=== PATIENT | male | born 1985 | race African-American/Black ===

== ENCOUNTER 2016-12-08 17:31 | Emergency (ER) | payer OTHER ==
[~2016-12-08] VITALS: Ht 190.5 cm; Wt 104.3 kg
[~2016-12-08 17:31] MED LIST: FLEXERIL10 MG PO; IBUPROFEN800 M1 PO; NORCO 325 MG-51 TAB PO
[2016-12-08 17:46] VITALS: BP 114/77
[2016-12-08 17:59] LABS: ABSOLUTE BASOPHIL COUNT 0.1 /CUMM (0.0-0.2); ABSOLUTE EOSINOPHIL COUNT 0 /CUMM (0.0-0.7); ABSOLUTE GRANULOCYTE CT 4.2 /CUMM (1.4-6.5); ABSOLUTE LYMPH COUNT 1.7 /CUMM (1.2-3.4); ABSOLUTE MONOCYTE COUNT 0.3 /CUMM (0.10-0.60); BASOPHIL % 1.6 % (0.0-2.0); EOSINOPHIL % 0.1 % (0-5); HEMATOCRIT 43.1 % (42-52); MEAN CORPUSCULAR HGB 28.1 PG (27.0-31.0); MEAN CORPUSCULAR HGB CONC 33.6 G/DL (33.0-37.0); MEAN CORPUSCULAR VOLUME 83.6 FL (80.0-94.0); MEAN PLATELET VOLUME 8.6 FL (7.4-10.4); PLATELET COUNT 255 /CUMM (130-400); RBC DISTRIBUTION WIDTH 13.3 % (11.5-14.5); RED BLOOD CELL CT 5.15 /CUMM (4.70-6.10); WHITE BLOOD CELL COUNT 6.3 /CUMM (4.8-10.8)
--- NOTE | 2016-12-08 21:03 | ED GENERAL ADULT ---
History of Present Illness General Chief Complaint: General Adult Stated Complaint: ?DIABETES, WEIGHT FLUCTUATING Source: patient Exam Limitations: no limitations Allergies Coded Allergies: NO KNOWN ALLERGIES (07/23/12) Reconcile Medications No Known Home Medications Triage Note: PT STATES HE HASN'T BEEN EATING RIGHT AND HE THINKS HE MAY HAVE DIABETES. PT STATES HE IS HAVING FREQUENT URINATION. BS IN TRIAGE IS 82 Triage Nurses Notes Reviewed? yes HPI: 31/M with no past medical history presented to the ED because of polyuria. Patient thinks that he has at they [place] because his mother symptom of diabetes started that way. Patient reported feeling tired more than usual recently. He denies dysuria, urgency, or incontinence. Patient reported drinking plenty amount of water. Patient denies abdominal pain, nausea, vomiting, fever, or chills. All other review of system are benign (TE CERDA MD) Vital Signs & Intake/Output Vital Signs & Intake/Output Vital Signs Date Time Temp Pulse Resp B/P Pulse O2 O2 Flow FiO2 Ox Delivery Rate 12/08 1746 99.0 80 16 114/77 97 Room Air ED Intake and Output 12/09 0000 12/08 1200 Intake Total Output Total Balance Patient 104.326 kg Weight Past History Travel History Traveled to [place] past 21 day No Medical History Neurological: NONE EENT: NONE Cardiovascular: NONE Respiratory: NONE Gastrointestinal: NONE Hepatic: NONE Renal: NONE Musculoskeletal: NONE Psychiatric: NONE Endocrine: NONE Surgical History Surgical History: none Psychosocial History What is your primary language [place] Tobacco Use: Never used ETOH Use: occasional use Illicit Drug Use: denies illicit drug use (TE CERDA MD) Medical History Any Pertinent Medical History? none Family History Hx Contributory? No (NICOLE HELMS MD) Review of Systems Review of Systems Constitutional: Reports: see HPI. (TE CERDA MD) Review of Systems EENTM: Reports: no symptoms. Respiratory: Reports: no symptoms. Cardiovascular: Reports: no symptoms. GI: Reports: no symptoms. Genitourinary: Reports: no symptoms. Musculoskeletal: Reports: no symptoms. Skin: Reports: no symptoms. Neurological/Psychological: Reports: no symptoms. Hematologic/Endocrine: Reports: no symptoms. Immunologic/Allergic: Reports: no symptoms. All Other Systems: Reviewed and Negative (NICOLE HELMS MD) Physical Exam Physical Exam General Appearance: well developed/nourished, no apparent distress, alert, awake , comfortable Head: atraumatic, normal appearance Eyes: Bilateral: normal appearance, PERRL, EOMI. (ZAIDA SCHAEFER,ISMAIL) Physical Exam Ears, Nose, Throat: normal pharynx, normal ENT inspection, hearing grossly normal Neck: normal inspection, supple, full range of motion, no midline tenderness Respiratory: normal breath sounds, chest non-tender, no respiratory distress, quiet respiration, lungs clear Cardiovascular: regular rate/rhythm, normal peripheral pulses, norml femoral pulses equa Peripheral Pulses: 4+ carotid (R), 4+ carotid (L) Gastrointestinal: normal bowel sounds, soft, non-tender, no organomegaly Back: normal inspection, normal range of motion Extremities: normal inspection, normal capillary refill, normal range of motion, no edema Neurologic/Psych: no motor/sensory deficits, awake, alert, oriented x 3, normal gait, normal mood/affect, risk analyst II-XII nml as tested Reflexes: 2+: bicep (R), bicep (L). Skin: intact, normal color, warm/dry Lymphatic: no anterior cervical bandar Core Measures ACS in differential dx? No CVA/TIA Diagnosis: No Severe Sepsis Present: No Septic Shock Present: No (ANALIA SCHAEFER,NICOLE) Progress Differential Diagnoses I considered the following diagnoses in my evaluation of the patient: [Primary polydipsia and UTI] (ZAIDA SCHAEFER,ISMAIL) Differential Diagnoses I considered the following diagnoses in my evaluation of the patient: Plan of Care: Orders Procedure Date/time Status URINALYSIS 12/08 2100 Complete COMPREHENSIVE METABOLIC PANEL 12/08 1747 Complete CBC WITHOUT DIFFERENTIAL 12/08 1747 Complete Laboratory Tests 12/08/162115: Urine Color YEL, Urine Clarity CLEAR, Urine pH 6.0, Ur Specific [place] 1.025, Urine Protein NEG, Urine Ketones NEG, Urine Nitrite NEG, Urine Bilirubin NEG, Urine Urobilinogen 1.0, Ur Leukocyte Esterase NEG, Ur Microscopic EXAM NOT REQUIRED, Urine Hemoglobin NEG, Urine Glucose NEG 12/08/16 1753: Anion Gap 15, Estimated GFR > 60, BUN/Creatinine Ratio 14.0, Glucose 91, Calcium 9.4, Total Bilirubin 0.8, AST 16 L, ALT 22, Alkaline Phosphatase 56, Total Protein 7.5, Albumin 4.2, Globulin 3.3, Albumin/Globulin Ratio 1.3, CBC w Diff NO MAN DIFF REQ, RBC 5.15, MCV 83.6, MCH 28.1, RDW 13.3, MPV 8.6, Gran % 66.0, Lymphocytes % 26.8, Monocytes % 5.5, Eosinophils % 0.1, Basophils % 1.6, Absolute Granulocytes 4.2, Absolute Lymphocytes 1.7, Absolute Monocytes 0.3, Absolute Eosinophils 0, Absolute Basophils 0.1, PUBS MCHC 33.6 All patient labs including electrolytes, glucose level, urinalysis are within normal limits. Patient left the hospital without telling anyone and even before the lab was back (TE CERDA MD) Initial ED EKG: none (NICOLE HELMS MD) Departure Departure Disposition: ER WALKOUT Condition: Stable Clinical Impression Primary Impression: Primary polydipsia Referrals: PATIENT HAS NO PRIMARY CARE DR (PCP/Family) Additional Instructions: She left before he was officially discharged. He just walked out of the ED without telling anyone. Old patient labs are within normal limits and the plan was to instruct him to follow up with his primary care doctor to further address his polyuria Departure Forms: Customer Survey General Discharge Information Prescriptions: Current Visit Scripts No Known Home Medications (TE CERDA MD) Resident Co-Sign Statement Statement: ED Attending supervision documentation- x I saw and evaluated the patient. I have also reviewed all the pertinent lab results and diagnostic results. I agree with the findings and the plan of care as documented in the Resident's documentation. Patient eloped from ED prior to urinalysis results. [] I have reviewed the ED Record and agree with the Resident's documentation. [] Additions or exceptions (if any) to the Resident's note and plan are summarized below: [] (NICOLE HELMS MD) Critical Care Note Critical Care Note Critical Care Time: non-applicable (NICOLE HELMS MD)
== END 2016-12-08 22:39 ==
LOC: ERH 17:31
PROVIDERS: Emergency Medicine
DX: R63.1 Polydipsia (principal)
CPT/HCPCS: 81003

== ENCOUNTER 2018-04-30 06:57 | Emergency (ER) | payer OTHER ==
[~2018-04-30] VITALS: Ht 190.5 cm; Wt 111.1 kg
--- NOTE | 2018-04-30 07:19 | ED MVC/FALL/TRAUMA COMPLAINT ---
History of Present Illness General Chief Complaint: General Adult Stated Complaint: "RT SIDE RIB PAIN S/P FALL AT WORK" Source: patient Exam Limitations: no limitations Vital Signs & Intake/Output Vital Signs & Intake/Output Vital Signs Date Time Temp Pulse Resp B/P B/P Pulse O2 O2 Flow FiO2 Mean Ox Delivery Rate 04/30 0701 98.1 70 16 136/83 98 Room Air Allergies Coded Allergies: NO KNOWN ALLERGIES (07/23/12) Reconcile Medications No Known Home Medications Triage Note: 32 YEAR OLD MALE STATES THAT 2 WEEKS AGO WHILE AT WORK HE WAS IN AN ATTIC AND HE FELL THROUGH THE CIELING , STATES THAT HE DID NOT FALL TO THE FLOOR BUT HE FELL ONTO A WOODING BEAM, LANDED ON RIGHT SIDE RIBS. COMPLAINS OF R RIB PAIN THAT INCREASES WITH MOVEMENT Triage Nurses Notes Reviewed? 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 He did not fall completely to the ground, but instead his fall was broken by a large beam which he struck with his right hemithorax. He has had pain there since, and comes to the emergency department today for evaluation of that pain. Upon my initial encounter he is very well-appearing in no acute distress. He denies any alexandre dyspnea, but does report that the pain is focally worse with deep inspiration and movement. Past History Travel History Traveled to [place] past 21 day No Medical History Any Pertinent Medical History? none Neurological: NONE EENT: NONE Cardiovascular: NONE Respiratory: NONE Gastrointestinal: NONE Hepatic: NONE Renal: NONE Musculoskeletal: NONE Psychiatric: NONE Endocrine: NONE Surgical History Surgical History: none Psychosocial History What is your primary language Hungarian Tobacco Use: Never used ETOH Use: denies use Illicit Drug Use: denies illicit drug use Family History Hx Contributory? No Review of Systems Review of Systems Constitutional: Reports: see HPI. Eyes: Reports: no symptoms. Ears, Nose, Throat, Mouth: Reports: no symptoms. Respiratory: Reports: no symptoms. Cardiovascular: Reports: chest pain. Denies: edema, orthopena, palpitations, peripheral edema, syncope. Gastrointestinal/Abdominal: Reports: no symptoms. Genitourinary: Reports: no symptoms. Musculoskeletal: Denies: back pain, joint pain, muscle pain. Skin: Reports: no symptoms. Neurological/Psychological: Reports: no symptoms. All Other Systems: Reviewed and Negative Physical Exam Physical Exam General Appearance: well developed/nourished, no apparent distress, alert, awake , comfortable Comments: Sullivan full examHEENT: Inspection of the head reveals a normocephalic cranium with no signs of trauma. Ophtho: Extraocular muscles are intact and pupils are equal and reactive to light bilaterally with no afferent pupillary defect. The sclera are noninjected , and there is no obvious discharge. Neck: The trachea is midline, there is no obvious asymmetry or mass over the thyroid, and there is no midline cervical spine tenderness Respiratory: The lungs are clear and equal to auscultation bilaterally without wheezes, rales, or rhonchi. The patient exhibits no signs of labored breathing. Cardiac: Regular rhythm and non-tachycardic without appreciable murmurs on auscultation. No obvious JVD. GI: Examination of the abdomen reveals no significant focal tenderness in any of the four quadrants. There is negative Pandya's sign, negative McBurney's point tenderness, negative Agustín sign, negative Delaney-Berry sign, and no signs of peritonitis whatsoever on percussion or deep palpation. The skin is intact with no sign of trauma or infection. : Deferred Musculoskeletal: Focused examination of the area of injury reveals tenderness to palpation over the right-sided hemithorax at the lateral most aspect at approximately the level of the inframammary line. There is no crepitus or bony step-off on the costal margin. Neuro: The patient is oriented to person, place, time, and situation, with no obvious focal motor deficits. There were no sensory deficits, and the patient exhibit purposeful movement of all 4 extremities. Cranial nerves II through XII are intact, and gait is normal. Behavioral: Calm and cooperative Dermatologic: Dermatologic examination reveals no diffuse rashes or exanthems, no petechiae, no ecchymoses, and no other signs of erythema or infection. Core Measures ACS in differential dx? Yes CVA/TIA Diagnosis No Sepsis Present: No Sepsis Focused Exam Completed? No Progress Differential Diagnosis: pnemothorax, RIB FRACTURE Plan of Care: Orders Procedure Date/time Status XRY-RIBS UNILATERAL-RIGHT 04/30 0711 Active Comments: Patient presents today with 2 week old work injury with right-sided thoracic pain. X-ray revealed four contiguous buckle fractures of those ribs. His medical and trauma screening examinations were otherwise negative. Incentive spirometer given with copious instructions. Patient will follow up with his occupational health for Workmen's Compensation and follow-up purposes. Stable at time of discharge. Departure Departure Time of Disposition: 815 Disposition: HOME OR SELF CARE Condition: Stable Clinical Impression Primary Impression: Rib fractures Qualifiers: Encounter type: initial encounter Rib fracture type: multiple ribs Fracture type: closed Laterality: right Qualified Code: S22.41XA - Multiple fractures of ribs, right side, initial encounter for closed fracture Referrals: Patient Has No Primary Care Dr (PCP/Family) Additional Instructions: Please make an appointment with your Workmen's Compensation office for reassessment and for further instructions. You have four "buckle fractures" of your ribs which will heal up on their own but which are very painful. Please use the incentive spirometer we provided several times per day, at least 3-4, to prevent developing pneumonia. Departure Forms: Customer Survey General Discharge Information Industrial Accident Report Prescriptions: Current Visit Scripts No Known Home Medications ED Attending Observation Initial Observation Note: I have seen and personally examined MARÍA OSUNA on 04/30/18 at 0719. I agree with the current emergency department documentation. The disposition (admission or discharge) is uncertain at this time, he needs a period of observation for the following reason(s): The ED Nurse caring for this patient has been personally informed as to what the patient is being observed for.
--- NOTE | 2018-04-30 08:01 | RADIOLOGY REPORT ---
EXAMINATION: XR RIBS, RIGHT CLINICAL INFORMATION: Pain. Question rib fracture. COMPARISON: Chest radiograph 12/13/2012. TECHNIQUE: A single AP view of the chest was obtained. 8 additional oblique projection of the right hemithorax were obtained. FINDINGS: There are acute nondisplaced buckle fractures involving the right seventh through tenth ribs at the site of the palpable BB marker. Ribs are otherwise intact. Lungs are well-expanded. No focal consolidative disease, pleural effusion, or pneumothorax. The cardiac silhouette and upper mediastinal contours are normal. No acute osseous finding. IMPRESSION: Acute nondisplaced buckle fractures involving the right seventh through tenth ribs.
[2018-04-30 08:17] VITALS: BP 130/80
== END 2018-04-30 08:26 ==
LOC: ERH 06:57
DX: S22.41XA Multiple fractures of ribs, right side, initial encounter for closed fracture (principal); W17.89XA Other fall from one level to another, initial encounter; Y92.89 Other specified places as the place of occurrence of the external cause; Y93.89 Activity, other specified
CPT/HCPCS: 71100-RT

== ENCOUNTER 2018-06-20 08:21 | Emergency (ER) | payer OTHER ==
[~2018-06-20] VITALS: Ht 190.5 cm; Wt 109.8 kg
--- NOTE | 2018-06-20 09:28 | ED GENERAL ADULT ---
History of Present Illness General Chief Complaint: Animal/Insect Bite Stated Complaint: STUNG IN FACE, SWELLING Source: patient Exam Limitations: no limitations Vital Signs & Intake/Output Vital Signs & Intake/Output Vital Signs Date Time Temp Pulse Resp B/P B/P Pulse O2 O2 Flow FiO2 Mean Ox Delivery Rate 06/20 1054 98.4 64 18 126/70 100 06/20 0825 97.5 76 20 118/81 100 Room Air Allergies Coded Allergies: NO KNOWN ALLERGIES (07/23/12) Reconcile Medications No Known Home Medications Triage Note: PT TO ED C/O FACIAL SWELLING SINCE MONDAY. STATES WHILE REMOVING A BEE'S NEST AT WORK HE WAS STUNG ON THE FACE. STATES SWELLING HAS GOTTEN WORSE. HAS BEEN TAKING BENDARYL, LAST DOSE 2129 LAST NIGHT. STATES TONGUE "FEELS FUNNY". NO SOB OR DIFF BREATHING NOTED. RA SATS 100%. STATES HIS EYES WERE SWOLLEN SHUT THIS AM. WORKERS COMP FORM FILED. Triage Nurses Notes Reviewed? yes HPI: Patient is a 32-year-old otherwise healthy male who presents today one day after an insect sting to the face. He suspects that it was a hornet, and he localizes the sting to the right side of the nose just inferior to the medial canthus of his eye. This morning, he woke with significant periorbital edema bilaterally, right greater than left, extending down over the zygomatic region bilaterally as well. He denies any nausea, vomiting, wheezing, stridor, or other symptoms consistent with anaphylaxis, however he does endorse "numbness" of his time. His speech is not garbled or muffled. Past History Travel History Traveled to [place] past 21 day No Medical History Any Pertinent Medical History? none Neurological: NONE EENT: NONE Cardiovascular: NONE Respiratory: NONE Gastrointestinal: NONE Hepatic: NONE Renal: NONE Musculoskeletal: NONE Psychiatric: NONE Endocrine: NONE Surgical History Surgical History: none Psychosocial History What is your primary language Hungarian Tobacco Use: Never used ETOH Use: denies use Illicit Drug Use: denies illicit drug use Family History Hx Contributory? No Review of Systems Review of Systems Constitutional: Reports: see HPI. Denies: chills, diaphoresis, fever, malaise, weakness. EENTM: Reports: eye pain. Denies: blurred vision, double vision, visual changes, nasal congestion, epistaxis, nasal pain. Respiratory: Reports: no symptoms. Cardiovascular: Reports: no symptoms. GI: Reports: no symptoms. Genitourinary: Reports: no symptoms. Musculoskeletal: Reports: no symptoms. Skin: Reports: see HPI, rash. Neurological/Psychological: Reports: no symptoms. Hematologic/Endocrine: Reports: no symptoms. Immunologic/Allergic: Reports: no symptoms. All Other Systems: Reviewed and Negative Physical Exam Physical Exam General Appearance: well developed/nourished, no apparent distress, alert, comfortable Comments: HEENT: There is bilateral periorbital edema, right greater than left, extending down to the cheeks overlying the zygomatic regions bilaterally. No fluctuance or induration. Ophtho: Tiny amount of discharge to the right medial canthus, possibly normal post-nocturnal buildup, less likely purulent infection. The lids are swollen almost shut on the right side, less so on the left side. Extraocular muscles are intact and pupils are equal and reactive to light bilaterally with no afferent pupillary defect. The sclera are noninjected, and there is no obvious discharge. Neck: The trachea is midline, there is no obvious asymmetry or mass over the thyroid, and there is no midline cervical spine tenderness Respiratory: The lungs are clear and equal to auscultation bilaterally without wheezes, rales, or rhonchi. The patient exhibits no signs of labored breathing. Cardiac: Regular rhythm and non-tachycardic without appreciable murmurs on auscultation. No obvious JVD. GI: Examination of the abdomen reveals no significant focal tenderness in any of the four quadrants. There is negative Pandya's sign, negative McBurney's point tenderness, negative Agustín sign, negative Delaney-Berry sign, and no signs of peritonitis whatsoever on percussion or deep palpation. The skin is intact with no sign of trauma or infection. : Deferred Neuro: The patient is oriented to person, place, time, and situation, with no obvious focal motor deficits. There were no sensory deficits, and the patient exhibit purposeful movement of all 4 extremities. Cranial nerves II through XII are intact, and gait is normal. Behavioral: Calm and cooperative Dermatologic: Dermatologic examination reveals no diffuse rashes or exanthems, no petechiae, no ecchymoses, and no other signs of erythema or infection. Core Measures ACS in differential dx? No CVA/TIA Diagnosis: No Sepsis Present: No Sepsis Focused Exam Completed? No Progress Differential Diagnoses I considered the following diagnoses in my evaluation of the patient: Local inflammation from insect sting, histamine reaction, anaphylactic reaction, allergic reaction, bacterial infection Plan of Care: Current Medications Sig/Nicolasa Start time Last Medication Dose Stop Time Status Admin Sodium Chloride 1,000 ML BOLUS ONE 06/20 930 AC (Normal Saline 0.9%) 06/20 1029 Trimethoprim/ 1 TAB ONCE ONE 06/20 930 UNVr Sulfamethoxazole 06/20 931 (Bactrim DS) Initial ED EKG: none Comments: Patient presented today with symptoms consistent with allergic reaction from bee sting yesterday. No anaphylactic symptoms or respiratory involvement. I provided intervenous dexamethasone, diphenhydramine, and famotidine with good effect. The patient felt improved and had significant decreased swelling to the face and eye. I prescribed a Medrol Dosepak and diphenhydramine along with a written prescription for an EpiPen for him to obtain after shopping around. He does not have a primary care physician so I provided him with the number for [facility] practice. Discharged home in stable condition. Departure Departure Time of Disposition: 1123 Disposition: HOME OR SELF CARE Condition: Stable Clinical Impression Primary Impression: Insect sting allergy, current reaction Qualifiers: Encounter type: initial encounter Injury intent: undetermined intent Qualified Code: T63.484A - Toxic effect of venom of other arthropod, undetermined, initial encounter Referrals: [facility] Additional Instructions: Please use the steroid and Benadryl that we prescribed to your pharmacy for ongoing symptoms. Call the attached number for an appointment with our primary care specialists and to be established with a primary physician. Use the EpiPen prescription to shop around and find a reasonably priced EpiPen to keep with you at all times. You should use this if you develop any symptoms from an allergic reaction that include shortness of breath. As always, return to the emergency department for any new or worsening symptoms. Departure Forms: Customer Survey General Discharge Information Industrial Accident Report Prescriptions: Current Visit Scripts Methylprednisolone. (Medrol) 1 DP PO AD #1 DP 6 on day 1 then reduce by one tablet daily until gone diphenhydrAMINE HCl (Benadryl) 1 CAP PO QPM PRN ALLERGIC REACTION SYMPTOMS #30 CAP Epinephrine 1 PEN IM ONCE PRN SEVERE ALLERGIC REACTION #1 BOX Critical Care Note Critical Care Note Critical Care Time: non-applicable
[2018-06-20 10:54] VITALS: BP 126/70
[2018-06-20] MEDS ORDERED: MEDROL4 M2 PO (11:30)
[2018-06-20] MEDS ORDERED: BENADRYL25 MG PO (11:30)
[2018-06-20] MEDS ORDERED: EPINEPHRIN0.3 MG/0.1 IM (11:30)
== END 2018-06-20 11:45 ==
LOC: ERH 08:21
DX: T63.484A Toxic effect of venom of other arthropod, undetermined, initial encounter (principal)
CPT/HCPCS: 96374; 96375; J1100; J1200